=== PATIENT | male | born 1955 | race Caucasian/White ===

== ENCOUNTER → 2018-03-25 | Emergency (ER) | payer OTHER ==
[~2018-03-25] VITALS: Ht 165.1 cm; Wt 80.7 kg
[~2018-03-25] MED LIST: AMARYL; AMARYL PO; ASA 325MG EC TAB PO; CRESTOR20 MG PO; CYTOMEL5 MCG; Cozaar PO; DEPAKOTE ER500 MG PO; DIVALPROEX SOD500 MG; Depakote PO; FERRO-PLEX PO; JANUVIA100 MG PO; LEVSIN/SL0.125 MG SL; Lipitor 40MG PO; METFORMIN HCL500 MG; NORVASC 5MG TAB PO; PLAVIX 75MG PO; PLAVIX75 MG; PRE-PROTEIN (20) PO; PREVACID30 MG PO; ROPINIROLE HCL1 MG; SYNTHROID200 MCG PO; Synthroid PO; TOPROL XL50 M1
== END | disposition home or self-care (01) ==
LOC: ER 08:34
DX: E11.649 Type 2 diabetes mellitus with hypoglycemia without coma (principal)